=== PATIENT | male | born 1950 | race Caucasian/White ===

== ENCOUNTER 2016-08-14 13:03 | Outpatient (CLI) | payer OTHER ==
[2016-08-14 13:45] LABS: Hemoglobin A1c 6.3 % (4.0-6.0)
[2016-08-14 14:19] LABS: Follow-up Chemistry Comp? YES; Follow-up Result - Chemistry REPORT FAXED
== END 2016-08-14 13:04 | disposition home or self-care (01) ==
LOC: NAV LAB 13:03
PROVIDERS: ATTEND Family Medicine
DX: E11.9 Type 2 diabetes mellitus without complications (principal)
CPT/HCPCS: 36415; 83036

== ENCOUNTER 2017-02-25 15:53 | Outpatient (CLI) | payer OTHER ==
--- NOTE | 2017-02-25 20:26 | ULT ---
RIGHT UPPER QUADRANT ULTRASOUND: Date: 02-25-17 Comparison: None. History: Hepatitis C. Technique: Multiplanar grayscale sonographic imaging of the right upper quadrant obtained. FINDINGS: Pancreas is not well assessed secondary to overlying bowel gas. No discrete focal liver lesion or intrahepatic biliary dilatation is seen. The common bile duct measures 5 mm, within normal limits. There is no gallbladder wall thickening or pericholecystic fluid. No gallstones are seen. Sonographi c Spencer's sign is negative. The right kidney measures 12.3 cm in craniocaudal dimension and demonstrates no stone, hydronephrosi s or mass. IMPRESSION: Grossly unremarkable right upper quadrant ultrasound. POS: [facility]
== END 2017-02-25 15:54 | disposition home or self-care (01) ==
LOC: NAV ULT 15:53
PROVIDERS: ATTEND Internal Medicine Gastroenterology
DX: Z12.11 Encounter for screening for malignant neoplasm of colon (principal); B19.20 Unspecified viral hepatitis C without hepatic coma
CPT/HCPCS: 76705

== ENCOUNTER 2018-06-12 07:43 | Outpatient (CLI) | payer BC ==
--- NOTE | 2018-06-12 10:57 | ULT ---
HEPATIC ULTRASOUND: History: Hepatitis C. FINDINGS: Real-time imaging of the upper abdomen shows some echogenic foci with shadowing within the gallbladde r consistent with stones. Technologist reports a negative ultrasound Spencer's sign. The common duct i s 4 mm. The liver parenchyma appears heterogeneous. It measures 15 cm in length. Right kidney is normal in size and not obstructed. The pancreas is obscured. IMPRESSION: 1. Cholelithiasis with a normal caliber common duct. 2. Heterogeneous echotexture of the liver without focal mass. POS: [facility]
[2018-06-12 16:45] LABS: Follow-up Chemistry Comp? YES; Follow-up Result - Chemistry REPORT FAXED
== END 2018-06-12 07:44 | disposition home or self-care (01) ==
LOC: NAV LAB 07:43
PROVIDERS: ATTEND Internal Medicine Gastroenterology
DX: Z86.19 Personal history of other infectious and parasitic diseases (principal); K80.20 Calculus of gallbladder without cholecystitis without obstruction; R93.2 Abnormal findings on diagnostic imaging of liver and biliary tract
CPT/HCPCS: 36415; 76705; 82105

== ENCOUNTER 2019-03-11 07:59 | Outpatient (CLI) | payer BC ==
--- NOTE | 2019-03-11 10:22 | ULT ---
ULTRASOUND ABDOMEN LIMITED: (RIGHT UPPER QUADRANT) DATE: 03/11/2019. HISTORY: A 68-year-old male with hepatitis C. FINDINGS: Gallbladder: Normal wall thickness. Multiple tiny mobile gallstones. No pericholecystic fluid. No mural thickening. Common duct: 5 mm. Liver: Echogenicity within normal limits. No hepatomegaly. Pancreas: Poorly visualized. Right kidney: No hydronephrosis. Allowing for technical differences, probably no major interval change since 06/12/2018. IMPRESSION: 1. Cholelithiasis without evidence of acute cholecystitis. 2. No major interval change. GISSELL Morfin POS: [facility]
== END 2019-03-11 08:00 | disposition home or self-care (01) ==
LOC: NAV ULT 07:59
PROVIDERS: ATTEND Internal Medicine Gastroenterology
DX: Z12.11 Encounter for screening for malignant neoplasm of colon (principal); K80.20 Calculus of gallbladder without cholecystitis without obstruction; Z86.19 Personal history of other infectious and parasitic diseases
CPT/HCPCS: 76705